=== PATIENT | female | born 1975 | race African-American/Black ===

== ENCOUNTER 2022-06-25 13:49 | Inpatient (IN) ==
[2022-06-25] MEDS ORDERED: SODIUM CHLORIDE 0.9% 1,000 ML IV STA (13:55)
[2022-06-25] MEDS ORDERED: ONDANSETRON INJ 2 MG/ML 2 ML VIAL ONE (15:06)
[2022-06-25] MEDS ORDERED: MoRPHine SULFATE 4 MG/ML 1 ML CARP\\VIAL IV STA ×3 (15:15→20:34)
[2022-06-25] MEDS ORDERED: ONDANSETRON INJ 2 MG/ML 2 ML VIAL IV STA (15:15)
[2022-06-25 15:17] LABS: Basophils # (auto) 0.02 K/uL (0-0.2); Basophils % (auto) 0.1 %; Hematocrit (blood only) 41.2 % (34.1-44.9); Hemoglobin 14.4 g/dl (12.0-16.0); Immature Granulocytes # (auto) 0.07 K/uL (0.00-0.02); Immature Granulocytes % (auto) 0.5 %; Lymphocytes # (auto) 1.58 K/uL (1.2-3.4); Lymphocytes % (auto) 10.2 %; Mean Corpuscular Hemoglobin 28.2 pg (25.0-34.0); Mean Corpuscular Volume 80.6 fL (80.0-100.0); Mean Platelet Volume 12.6 fL (9.4-12.3); Monocytes # (auto) 0.48 K/uL (0.24-0.82); Monocytes % (auto) 3.1 %; Neutrophils # (auto) 13.33 K/uL (1.4-6.5); Neutrophils % (auto) 86.1 %; Platelet Count 274 K/uL (130-400); RDW Coefficient of Variation 13.1 % (11.5-14.5); RDW Standard Deviation 37.9 fL (36.4-46.3); Red Blood Count 5.11 M/uL (3.93-5.22); White Blood Count 15.48 K/ul (4.8-10.8)
--- NOTE | 2022-06-25 15:18 | Emergency Department Note ---
Impression & Plan Acute epigastric pain, Nausea & vomiting, Hyperglycemia due to type 2 diabetes mellitus ED Provider Note Provider: Too Dias MD DATE OF SERVICE: 06/25/2022 CHIEF COMPLAINT: Epigastric pain, nausea and vomiting HISTORY OF PRESENT ILLNESS: Patient is a 46-year-old female history of diabetes and hiatal hernia presenting here today reporting onset last night through today of epigastric pain with nausea and vomiting. Did start a new diabetes medicine recently that may be contributing. Denies significant lower abdominal pain. Prior cholecystectomy reported. Denies trauma. Denies significant chest pain. Limited intake today due to her nausea and vomiting. Tried Phenergan and Reglan at home without improvement. No sick contacts reported. Has had some similar episodes in the past but not as severe as this. 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 NECK: Trachea midline. LUNGS: Airway patent. No retractions. Breath sounds clear HEART: Regular rate and rhythm. No chest wall tenderness ABDOMEN: Soft with epigastric tenderness but not severe lower abdominal tenderness. SKIN: Acyanotic, warm, dry, without rashes EXTREMITIES: Without swelling, tenderness or deformity NEUROLOGICAL: No focal deficits. No aphasia. No facial droop or slurred speech. Ambulatory. EK bpm normal sinus rhythm. No PVC or PAC. No acute ST segment elevation with some lateral T wave flattening. LVH noted with a QTC of 462. CONTINUOUS CARDIAC MONITORING: was ordered and showed a heart rate of 80s-90s bpm in normal sinus rhythm Patient's laboratory studies and imaging reviewed. Differential includes Appendicitis, infections, diverticulitis, UTI, obstruction, mesenteric ischemia, aortic pathology, inflammatory bowel disease, renal colic, PUD, pancreatitis, biliary pathology, hernia, volvulus, constipation, as well as other pathologies. IMPRESSION/MEDICAL DECISION MAKING: Patient with onset overnight of nausea vomiting and epigastric discomfort. Recently started diabetes medication may be contributing and question if she may be experiencing pancreatitis. Is really history additionally pedal hernia. No trauma reported. EKG and troponin sent but lower suspicion given the patient's nausea and vomiting this is cardiac. We will complete a CT abdomen pelvis to look for possible pancreatitis, gastritis, or other intra-abdominal process. Doubt PE and she is not significantly hypoxic. Is hypertensive here. He likely related to pain and given some morphine in addition to Zofran and IV fluid to help with symptoms. Some improvement with this. Blood work with leukocytosis of 15.48 nonspecific. No anemia. Mild hyponatremia but no significant renal dysfunction. Glucose is elevated consistent with a history of diabetes. No evidence of acute hepatitis or pancreatitis based on labs. Negative COVID testing. Patient more comfortable with medications and less nauseous. Loading some additional Reglan for this. Troponin not elevated and EKG without acute ischemic findings. CT scan question some bilateral periadrenal fat stranding could represent adrenal congestion according to radiology report but no evidence of obstruction, bowel wall thickening, appendicitis, or other acute finding reported. Quick review of literature appears drain congestion can be related to physiological stresses. Discussed with patient and her significant other at bedside. Given some additional pain medication. Discussed with him staying here for further evaluation. Hospitalist contacted. Question if this is gastroenteritis situation versus possibly medication related to her Trulicity. DIAGNOSIS: Epigastric pain, nausea and vomiting, hypertension, hyperglycemia secondary to type 2 diabetes DISPOSITION: Hospitalist will evaluate Patient was agreeable with this plan. Past Med/Surg History Medical History (Updated 06/25/22 @ 18:45 by Anna Alvarado DO) Depression with anxiety Dyslipidemia GERD (gastroesophageal reflux disease) HTN (hypertension) Irritable bowel syndrome with diarrhea Morbid obesity due to excess calories Type 2 diabetes mellitus Surgical History (Updated 06/25/22 @ 18:44 by Anna Alvarado DO) H/O bilateral breast reduction surgery 2016 Social History Smoking Status: Never smoker Preferred Language: [place] Feels Safe at Home: Yes Allergies Allergies Allergy/AdvReac Type Severity Reaction Status Date / Time nkda Allergy Uncoded 06/25/22 18:42 Results & Data (ED) Vital Signs Vital Signs - 24 hr 06/25/22 13:52 06/25/22 15:47 06/25/22 15:52 Temperature 36.3 C L Temperature Source Temporal Artery Scan Pulse Rate 94 H 78 Pulse Rate from SpO2 Sensor 79 Pulse Rhythm Regular Pulse Strength Normal Respiratory Rate 20 19 Respiratory Effort / Characteristics Non-Labored Spontaneous Respiratory Depth Normal Respiratory Pattern Regular Blood Pressure 214/111 H 166/103 H Blood Pressure Mean 145 124 Blood Pressure Position Sitting Pulse Oximetry 96 98 Oxygen Delivery Method Room Air Sepsis Recent Fever Within 48 Hours No Sepsis New/Unexplained Change in Mental Status No Sepsis Action Taken by Nursing No Action Required 06/25/22 15:52 06/25/22 16:00 06/25/22 16:15 Temperature Temperature Source Pulse Rate 77 79 83 Pulse Rate from SpO2 Sensor 78 79 82 Pulse Rhythm Pulse Strength Respiratory Rate 14 32 H 30 H Respiratory Effort / Characteristics Respiratory Depth Respiratory Pattern Blood Pressure Blood Pressure Mean Blood Pressure Position Pulse Oximetry 96 95 95 Oxygen Delivery Method Sepsis Recent Fever Within 48 Hours Sepsis New/Unexplained Change in Mental Status Sepsis Action Taken by Nursing 06/25/22 16:30 06/25/22 16:50 06/25/22 16:58 Temperature Temperature Source Pulse Rate 86 92 H Pulse Rate from SpO2 Sensor 83 Pulse Rhythm Pulse Strength Respiratory Rate 29 H 23 Respiratory Effort / Characteristics Respiratory Depth Respiratory Pattern Blood Pressure 192/104 H Blood Pressure Mean 133 Blood Pressure Position Pulse Oximetry 95 Oxygen Delivery Method Sepsis Recent Fever Within 48 Hours Sepsis New/Unexplained Change in Mental Status Sepsis Action Taken by Nursing 06/25/22 16:58 06/25/22 17:00 06/25/22 17:00 Temperature Temperature Source Pulse Rate 97 H 90 Pulse Rate from SpO2 Sensor 96 H Pulse Rhythm Pulse Strength Respiratory Rate 22 30 H Respiratory Effort / Characteristics Respiratory Depth Respiratory Pattern Blood Pressure 156/92 H Blood Pressure Mean 113 Blood Pressure Position Pulse Oximetry 97 Oxygen Delivery Method Sepsis Recent Fever Within 48 Hours Sepsis New/Unexplained Change in Mental Status Sepsis Action Taken by Nursing 06/25/22 17:15 06/25/22 17:30 06/25/22 17:45 Temperature Temperature Source Pulse Rate 86 86 88 Pulse Rate from SpO2 Sensor 88 88 89 Pulse Rhythm Pulse Strength Respiratory Rate 28 H 27 H 17 Respiratory Effort / Characteristics Respiratory Depth Respiratory Pattern Blood Pressure Blood Pressure Mean Blood Pressure Position Pulse Oximetry 96 96 97 Oxygen Delivery Method Sepsis Recent Fever Within 48 Hours Sepsis New/Unexplained Change in Mental Status Sepsis Action Taken by Nursing 06/25/22 18:00 06/25/22 18:00 06/25/22 18:15 Temperature Temperature Source Pulse Rate 85 91 H Pulse Rate from SpO2 Sensor 85 90 Pulse Rhythm Pulse Strength Respiratory Rate 27 H 25 H Respiratory Effort / Characteristics Respiratory Depth Respiratory Pattern Blood Pressure 178/109 H Blood Pressure Mean 132 Blood Pressure Position Pulse Oximetry 96 96 Oxygen Delivery Method Sepsis Recent Fever Within 48 Hours Sepsis New/Unexplained Change in Mental Status Sepsis Action Taken by Nursing Laboratory Data 06/25/22 15:00 06/25/22 15:00 Lab Results 06/25/22 06/25/22 06/25/22 Range/Units 15:00 15:00 15:00 WBC 15.48 H (4.8-10.8) K/ul RBC 5.11 (3.93-5.22) M/uL Hgb 14.4 (12.0-16.0) g/dl Hct 41.2 (34.1-44.9) % MCV 80.6 (80.0-100.0) fL MCH 28.2 (25.0-34.0) pg MCHC 35.0 (32.0-36.0) g/dL RDW Std Deviation 37.9 (36.4-46.3) fL RDW Coeff of Dia 13.1 (11.5-14.5) % Plt Count 274 (130-400) K/uL MPV 12.6 H (9.4-12.3) fL Immature Gran % (Auto) 0.5 % Neut % (Auto) 86.1 % Lymph % (Auto) 10.2 % [place] % (Auto) 3.1 % Eos % (Auto) 0.0 % Baso % (Auto) 0.1 % Neut # (Auto) 13.33 H (1.4-6.5) K/uL Lymph # (Auto) 1.58 (1.2-3.4) K/uL [place] # (Auto) 0.48 (0.24-0.82) K/uL Eos # (Auto) 0.00 (0-0.50) K/uL Baso # (Auto) 0.02 (0-0.2) K/uL Immature Gran # (Auto) 0.07 H (0.00-0.02) K/uL Sodium 134 L (136-145) mmol/L Potassium 3.6 (3.5-5.1) mmol/L Chloride 97 L (98-107) mmol/L Carbon Dioxide 25 (21-32) mmol/L Anion Gap 12 H (3-11) BUN 9 (6-23) mg/dl Creatinine 0.52 L (0.6-1.2) mg/dl Est Cr Clr Drug Dosing 158.7 ml/min Est GFR ( Amer) 132.8 ml/min Est GFR (Non-Af Amer) 114.6 ml/min BUN/Creatinine Ratio 17.3 (10-20) Glucose 247 H (70-99(Fasting)) mg/dl Calcium 10.1 (8.5-10.1) mg/dl Total Bilirubin 0.6 (0.2-1.0) mg/dl AST 13 (13-39) U/L ALT 19 (7-52) U/L Alkaline Phosphatase 102 (34-104) U/L Troponin I High Sens 7.1 (0-14) pg/ml Total Protein 8.9 H (6.0-8.3) gm/dl Albumin 4.7 (3.4-5.0) gm/dl Globulin 4.2 H (2.5-4.0) gm/dl Albumin/Globulin Ratio 1.1 (0.9-2) Lipase 8 L (11-82) U/L SARS-CoV-2, RNA, NAAT (NEGATIVE) 06/25/22 Range/Units 15:39 WBC (4.8-10.8) K/ul RBC (3.93-5.22) M/uL Hgb (12.0-16.0) g/dl Hct (34.1-44.9) % MCV (80.0-100.0) fL MCH (25.0-34.0) pg MCHC (32.0-36.0) g/dL RDW Std Deviation (36.4-46.3) fL RDW Coeff of Dia (11.5-14.5) % Plt Count (130-400) K/uL MPV (9.4-12.3) fL Immature Gran % (Auto) % Neut % (Auto) % Lymph % (Auto) % [place] % (Auto) % Eos % (Auto) % Baso % (Auto) % Neut # (Auto) (1.4-6.5) K/uL Lymph # (Auto) (1.2-3.4) K/uL [place] # (Auto) (0.24-0.82) K/uL Eos # (Auto) (0-0.50) K/uL Baso # (Auto) (0-0.2) K/uL Immature Gran # (Auto) (0.00-0.02) K/uL Sodium (136-145) mmol/L Potassium (3.5-5.1) mmol/L Chloride (98-107) mmol/L Carbon Dioxide (21-32) mmol/L Anion Gap (3-11) BUN (6-23) mg/dl Creatinine (0.6-1.2) mg/dl Est Cr Clr Drug Dosing ml/min Est GFR ( Amer) ml/min Est GFR (Non-Af Amer) ml/min BUN/Creatinine Ratio (10-20) Glucose (70-99(Fasting)) mg/dl Calcium (8.5-10.1) mg/dl Total Bilirubin (0.2-1.0) mg/dl AST (13-39) U/L ALT (7-52) U/L Alkaline Phosphatase (34-104) U/L Troponin I High Sens (0-14) pg/ml Total Protein (6.0-8.3) gm/dl Albumin (3.4-5.0) gm/dl Globulin (2.5-4.0) gm/dl Albumin/Globulin Ratio (0.9-2) Lipase (11-82) U/L SARS-CoV-2, RNA, NAAT NEGATIVE (NEGATIVE) Administered Medications Discontinued Medications Sodium Chloride (Nss) 1,000 mls @ 999 mls/hr IV .Q1H1M STA Stop: 06/25/22 14:55 Last Infusion: 06/25/22 16:20 Dose: 0 mls/hr Documented By: Admin: 06/25/22 15:12 Dose: 999 mls/hr Documented By: NACHO Sodium Chloride (Nss 1000ml) 1,000 mls @ 999 mls/hr IV .Q1H1M ONE Stop: 06/25/22 18:38 Last Admin: 06/25/22 18:20 Dose: 999 mls/hr Documented By: JOSÉ MIGUEL Ioversol (Optiray 350 100ml) 86 ml IV ONCE ONE Stop: 06/25/22 16:47 Last Admin: 06/25/22 16:46 Dose: 86 ml Documented By: DIPIKA Metoclopramide HCl (Metoclopramide Hcl Inj 5 Mg/Ml 2 Ml Vial) 10 mg IV NOW STA Stop: 06/25/22 17:28 Last Admin: 06/25/22 17:34 Dose: 10 mg Documented By: DLN Morphine Sulfate (Morphine Sulfate 4 Mg/Ml 1 Ml Carp\Vial) 4 mg IV NOW STA Stop: 06/25/22 15:16 Last Admin: 06/25/22 15:47 Dose: 4 mg Documented By: VENKATN Morphine Sulfate (Morphine Sulfate 4 Mg/Ml 1 Ml Carp\Vial) 4 mg IV NOW STA Stop: 06/25/22 17:34 Last Admin: 06/25/22 17:40 Dose: 4 mg Documented By: JOSÉ MIGUEL Ondansetron HCl (Ondansetron Inj 2 Mg/Ml 2 Ml Vial) Confirm Administered Dose 4 mg .ROUTE .STK-MED ONE Stop: 06/25/22 15:07 Last Admin: 06/25/22 15:12 Dose: 4 mg Documented By: NACHO Ondansetron HCl (Ondansetron Inj 2 Mg/Ml 2 Ml Vial) 4 mg IV NOW STA Stop: 06/25/22 15:16 Last Admin: 06/25/22 15:47 Dose: 4 mg Documented By: JOSÉ MIGUEL Imaging Data Radiologist's Impression: Abdomen/Pelvis CT 06/25/22 15:[address] WITH IV CONTRAST CT DOSE: 1448.73 mGy.cm HISTORY: epigastric pain, n/v, hiatal hernia, diabetes TECHNIQUE: Multiaxial CT images of the abdomen and pelvis were performed following the use of intravenous contrast. A dose lowering technique was utilized adhering to the principles of ALARA. COMPARISON STUDY: None. FINDINGS: The lung bases are clear. No pneumoperitoneum. No pneumatosis. No acute fractures identified. Hepatic steatosis. The gallbladder appears surgically absent. The main portal vein is patent. In the pancreas, spleen, and kidneys are unremarkable. No hydronephrosis. Normal caliber abdominal aorta. No retroperitoneal lymphadenopathy. Adrenal glands are normal in size. There are no adrenal nodules identified. However, there is mild bilateral periadrenal fat stranding. No pelvic lymphadenopathy. The bladder is unremarkable. There is a 5 cm subserosal fibroid on image 354. There is a 2.3 cm exophytic posterior uterine fibroid on image 333. There is also partially calcified 1.4 cm nodule along the posterior uterus which may represent an additional exophytic fibroid. No bowel wall thickening or obstruction. The cecum terminates within the left lower quadrant where there is a normal appendix. IMPRESSION: 1. Mild bilateral periadrenal fat stranding. The adrenal glands are normal in size. This is nonspecific but could be seen in the setting of adrenal congestion. 2. No bowel wall thickening or obstruction. 3. Normal appendix seen within the left lower quadrant. 4. Fibroid uterus. 5. Hepatic steatosis. 6. Cholecystectomy. ACT 112: Negative or not required by law. Electronically signed by: Eduard Lopez M.D. 06/25/2022 4:58 PM Discharge Plan Visit Data Chief Complaint: Nausea Stated Complaint: NAUSEA, VOMITING, DIARRHEA, WEAKNESS ED Provider: Too Dias Discharge Problem: Acute epigastric pain, Nausea & vomiting, Hyperglycemia due to type 2 diabetes mellitus Patient Disposition: Being Evaluated by Hospitalist Condition: Fair Forms Stand Alone Forms: My [facility] Referrals Referrals: PCP,NO [Physician] -
[2022-06-25 16:13] LABS: Albumin Globulin Ratio 1.1 (0.9-2); Albumin Level 4.7 gm/dl (3.4-5.0); BUN Creatinine Ratio 17.3 (10-20); Bilirubin,Total 0.6 mg/dl (0.2-1.0); Calcium 10.1 mg/dl (8.5-10.1); Creatinine Clr Calc Pharmacy 158.7 ml/min; Est GFR (African American) 132.8 ml/min; Est GFR (Non-African American) 114.6 ml/min; Globulin 4.2 gm/dl (2.5-4.0); Potassium 3.6 mmol/L (3.5-5.1); Total Protein 8.9 gm/dl (6.0-8.3)
[2022-06-25] MEDS ORDERED: OPTIRAY 350 100ml IV ONE (16:46)
--- NOTE | 2022-06-25 17:01 | CT Scan Report ---
ABDOMEN AND PELVIS CT WITH IV CONTRAST CT DOSE: 1448.73 mGy.cm HISTORY: epigastric pain, n/v, hiatal hernia, diabetes TECHNIQUE: Multiaxial CT images of the abdomen and pelvis were performed following the use of intrave nous contrast. A dose lowering technique was utilized adhering to the principles of ALARA. COMPARISON STUDY: None. FINDINGS: The lung bases are clear. No pneumoperitoneum. No pneumatosis. No acute fractures identifie d. Hepatic steatosis. The gallbladder appears surgically absent. The main portal vein is patent. In t he pancreas, spleen, and kidneys are unremarkable. No hydronephrosis. Normal caliber abdominal aorta. No retroperitoneal lymphadenopathy. Adrenal glands are normal in size. There are no adrenal nodules identified. However, there is mild bilateral periadrenal fat stranding. No pelvic lymphadenopathy. Th e bladder is unremarkable. There is a 5 cm subserosal fibroid on image 354. There is a 2.3 cm exophyt ic posterior uterine fibroid on image 333. There is also partially calcified 1.4 cm nodule along the posterior uterus which may represent an additional exophytic fibroid. No bowel wall thickening or obs truction. The cecum terminates within the left lower quadrant where there is a normal appendix. IMPRESSION: 1. Mild bilateral periadrenal fat stranding. The adrenal glands are normal in size. This is nonspecif ic but could be seen in the setting of adrenal congestion. 2. No bowel wall thickening or obstruction. 3. Normal appendix seen within the left lower quadrant. 4. Fibroid uterus. 5. Hepatic steatosis. 6. Cholecystectomy. ACT 112: Negative or not required by law. Electronically signed by: Eduard Lopez M.D. 06/25/2022 4:58 PM
[2022-06-25] MEDS ORDERED: METOCLOPRAMIDE HCL INJ 5 MG/ML 2 ML VIAL IV STA (17:27)
[2022-06-25] MEDS ORDERED: SODIUM CHLORIDE 0.9% 1000ML 1,000 ML IV ONE (17:38)
--- NOTE | 2022-06-25 18:46 | History & Physical Report ---
Date of Service June 25, 2022 Assessment & Plan (1) Acute epigastric pain: Plan: Appears to be related to new Mounjaro medication (GLP-1 agonist) with the timing of her symptoms after the switch. Now with vomiting and dehydration, this is worse. Will continue to hold Mounjaro and use insulin for blood sugar control while admitted. [facility]. health educator to see her is a good idea. (2) Nausea & vomiting: Plan: Likely related to issue above. Cont supportive care and if not improved consider GI consult. (3) Hypertensive urgency: Plan: Uncontrolled BP related to current symptoms, fatigue, pain that is not controlled and noncompliance with hypertensive medications in the past few days. Labetalol given in the ER. Restart home medications in am and more parenteral therapy as needed overnight. Monitor in PCU setting. (4) Side effect of drug: (5) Type 2 diabetes mellitus: Plan: chronic, poorly controlled A1C of 8.2 with goal <7 (04/2022). Repeat A1C requested. Cont with MDD insulin while admitted. (6) Dyslipidemia: Plan: chronic, stable. Cont home atorvastatin. (7) Morbid obesity due to excess calories: Plan: Lifestyle changes strongly recommended. (8) Irritable bowel syndrome with diarrhea: Plan: chronic, stable. No reports of changes in bowels. Typically uses Lomotil daily which we will hold at this time. (9) Anxiety: Plan: chronic, stable. Cont Venlafaxine per home regimen. DVT proph-SCDs/Lovenox Full Code Dispo-to PCU for BP control and monitoring Anna Alvarado DO [facility] Hospitalist History of Present Illness Chief Complaint: nausea,vomiting, exhaustion Primary Care Provider: Zechariah Mckeon MD The patient is a 46-year-old diabetic female presenting with epigastric pain nausea and vomiting for 1 day. [facility] 4 weeks ago and reported nausea present but it was manageable. Then on Wednesday of this week (2 days ago) she increased her dose of Mounjaro from 5mg to 7.5mg and feels this may be contributing to her current symptoms. She reports an extensive GI history with IBS with chronic diarrhea managed with once daily lomotil. She reports having some pain like this in the past and was hospit alized two years ago, requiring pain meds, bowel rest and IVF. She reports that an extensive workup was unremarkable and only knows the IBS diagnosis. She doesn't appear to have pancreatitis with the normal lipase and CT abd revealing a normal pancreas, however, she does report a chronic sharp midepigastric pain that is reproducible with palpation and has a burning quality. She reports trying Tylneol and Toradol recently which wasn't helpful for her pain. On arrival she was hypertensive with a blood pressure of 214/111. She reports this happens when she is ill and not feeling well. She also reports noncompliance with her losartan over the past couple of days. In the ER she received 2 L of IV fluid, Zofran 4 mg of morphine x2 and Reglan. She was given additional morphine on request . . Allergies Allergy/AdvReac Type Severity Reaction Status Date / Time nkda Allergy Uncoded 06/25/22 18:42 Home Medications Medication Instructions Recorded Confirmed Type atorvastatin 10 mg tablet 10 mg PO DAILY 06/25/22 06/25/22 History cetirizine 10 mg tablet (Zyrtec) 10 mg PO DAILY 06/25/22 06/25/22 History diphenoxylate-atropine 2.5 1 tab PO DAILY 06/25/22 06/25/22 History mg-0.025 mg tablet (Lomotil) ergocalciferol (vitamin D2) 1,250 50,000 unit PO WK 06/25/22 06/25/22 History mcg (50,000 unit) capsule insulin degludec 100 unit/mL (3 35 unit subcut DAILY 06/25/22 06/25/22 History mL) subcutaneous pen (Tresiba FlexTouch U-100 insulin) losartan 25 mg tablet 25 mg PO DAILY 06/25/22 06/25/22 History montelukast 10 mg tablet 10 mg PO DAILY 06/25/22 06/25/22 History pantoprazole 40 mg tablet,delayed 40 mg PO QAM 06/25/22 06/25/22 History release tirzepatide 10 mg/0.5 mL 7.5 mg subcut WK 06/25/22 06/25/22 History subcutaneous pen injector (Mounjaro) valacyclovir 500 mg tablet 500 mg PO QAM PRN Cold Sores 06/25/22 06/25/22 History venlafaxine 150 mg 300 mg PO QAM 06/25/22 06/25/22 History capsule,extended release 24 hr Past Med/Surg History Medical History Depression with anxiety Dyslipidemia GERD (gastroesophageal reflux disease) HTN (hypertension) Irritable bowel syndrome with diarrhea Morbid obesity due to excess calories Type 2 diabetes mellitus Surgical History H/O bilateral breast reduction surgery 2015 H/O right knee surgery S/P cholecystectomy Family History Mother Diabetes Brother Diabetes Social History Smoking Status: Never smoker Hx Alcohol Use: No Hx Substance Use: No Preferred Language: Zambian Feels Safe at Home: Yes Review of Systems Review of Systems: All systems were reviewed and negative except as indicated on HPI above. Physical Exam Physical Exam: CONSTITUTIONAL: morbidly obese, vitals as above, generally ill appearing EYES: EOMI bilaterally, PERRL, normal conjunctivae, no scleral icterus ENT: external ear and nose normal, oropharynx clear, oral mucous membranes are moist. NECK: trachea midline RESPIRATORY: clear to auscultation bilaterally, no crackles, rales or wheezes, normal respiratory effort CARDIOVASCULAR: regular rate and rhythm, S1 and 2 heard without murmurs, gallops or rubs, no JVD, no peripheral edema CHEST: inspection of chest was normal GASTROINTESTINAL: soft, TTP in epigastric area, ND, no guarding MUSCULOSKELETAL: strength 5/5 throughout, she is ambulating independently to and from the bathroom, head is normocephalic and atraumatic SKIN: warm and dry NEUROLOGIC: CN 2-12 grossly intact, no sensory deficit, normal cognition, normal speech, no tremor PSYCHIATRIC: alert cooperative and oriented to person, place and time. Euthymic mood, makes good eye contact, language grossly intact, recent and remote memory grossly intact. Results & Data Results & Data ([facility]) Vital Signs (Past 12 Hours) Vital Signs Temp Pulse Resp BP Pulse Ox O2 Del Method 06/25/22 18:15 91 H 25 H 96 06/25/22 18:00 85 27 H 96 06/25/22 18:00 178/109 H 06/25/22 17:45 88 17 97 06/25/22 17:30 86 27 H 96 06/25/22 17:15 86 28 H 96 06/25/22 17:00 90 30 H 06/25/22 17:00 156/92 H 06/25/22 16:58 97 H 22 97 06/25/22 16:58 192/104 H 06/25/22 16:50 92 H 23 06/25/22 16:30 86 29 H 95 06/25/22 16:15 83 30 H 95 06/25/22 16:00 79 32 H 95 06/25/22 15:52 77 14 96 06/25/22 15:52 166/103 H 06/25/22 15:47 78 19 98 06/25/22 13:52 36.3 C L 94 H 20 214/111 H 96 Room Air Laboratory Results Short CBC 06/25/22 Range/Units 15:00 WBC 15.48 H (4.8-10.8) K/ul Hgb 14.4 (12.0-16.0) g/dl Hct 41.2 (34.1-44.9) % Plt Count 274 (130-400) K/uL BMP 06/25/22 15:00 Sodium 134 L Potassium 3.6 Chloride 97 L Carbon Dioxide 25 BUN 9 Creatinine 0.52 L Glucose 247 H Calcium 10.1 Liver Function 06/25/22 Range/Units 15:00 Total Bilirubin 0.6 (0.2-1.0) mg/dl AST 13 (13-39) U/L ALT 19 (7-52) U/L Alkaline Phosphatase 102 (34-104) U/L Albumin 4.7 (3.4-5.0) gm/dl Diagnostic Findings Abdomen/Pelvis CT 06/25/22 15:[address] WITH IV CONTRAST CT DOSE: 1448.73 mGy.cm HISTORY: epigastric pain, n/v, hiatal hernia, diabetes TECHNIQUE: Multiaxial CT images of the abdomen and pelvis were performed following the use of intravenous contrast. A dose lowering technique was utilized adhering to the principles of ALARA. COMPARISON STUDY: None. FINDINGS: The lung bases are clear. No pneumoperitoneum. No pneumatosis. No acute fractures identified. Hepatic steatosis. The gallbladder appears surgically absent. The main portal vein is patent. In the pancreas, spleen, and kidneys are unremarkable. No hydronephrosis. Normal caliber abdominal aorta. No retroperitoneal lymphadenopathy. Adrenal glands are normal in size. There are no adrenal nodules identified. However, there is mild bilateral periadrenal fat stranding. No pelvic lymphadenopathy. The bladder is unremarkable. There is a 5 cm subserosal fibroid on image 354. There is a 2.3 cm exophytic posterior uterine fibroid on image 333. There is also partially calcified 1.4 cm nodule along the posterior uterus which may represent an additional exophytic fibroid. No bowel wall thickening or obstruction. The cecum terminates within the left lower quadrant where there is a normal appendix. IMPRESSION: 1. Mild bilateral periadrenal fat stranding. The adrenal glands are normal in size. This is nonspecific but could be seen in the setting of adrenal congestion. 2. No bowel wall thickening or obstruction. 3. Normal appendix seen within the left lower quadrant. 4. Fibroid uterus. 5. Hepatic steatosis. 6. Cholecystectomy. ACT 112: Negative or not required by law. Electronically signed by: Eduard Lopez M.D. 06/25/2022 4:58 PM Code Status & VTE Plan VTE Prophylaxis Plan VTE Prophylaxis will be ordered: Yes (1) Type 2 diabetes mellitus Diabetes mellitus complication status: with other specified complication Diabetes mellitus long term care social worker insulin use: unspecified long term care social worker insulin use status Qualified Code(s): E11.69 - Type 2 diabetes mellitus with other specified complication
[2022-06-25] MEDS ORDERED: LABETALOL HCL IV 5 MG/ML 20ML IV STA (20:36)
[2022-06-25] MEDS ORDERED: ALUMINUM/MAGNESIUM SUSP 30 ML UDC PO PRN (21:39)
[2022-06-25] MEDS ORDERED: GLUCOSE 40% GEL 15 GM TUBE PO PRN (21:39)
[2022-06-25] MEDS ORDERED: GLUCOSE 10 TAB/TUBE PO PRN (21:39)
[2022-06-25] MEDS ORDERED: GLUCAGON FOR INJ 1 MG VIAL SQ PRN (21:39)
[2022-06-25] MEDS ORDERED: POLYETHYLENE (MIRALAX) 17 GM PACK PO PRN (21:39)
[2022-06-25] MEDS ORDERED: MoRPHine SULFATE 2 MG/ML CARP IV PRN (21:39)
[2022-06-25] MEDS ORDERED: ACETAMINOPHEN 325 MG TAB PO PRN (21:39)
[2022-06-25] MEDS ORDERED: DEXTROSE 50% 50 ML SYRINGE IV PRN (21:39)
[2022-06-25] MEDS ORDERED: CARBOHYDRATES FOR HYPOGLYCEMIA PO PRN (21:39)
[2022-06-25] MEDS: ENOXAPARIN INJ 40 MG/0.4 ML SYR SQ SCH (22:21)
[2022-06-25] MEDS: INSULIN ASPART PER UNIT SC SCH (22:22)
[2022-06-25] MEDS: LANTUS PER UNIT CHARGE SQ SCH (22:23)
[2022-06-25] MEDS ORDERED: PROMETHAZINE HCL 12.5 MG in SODIUM CHLORIDE 0.9% 50 ML IV PRN (22:47)
[2022-06-26 06:30] LABS: Hemoglobin 12.6 g/dl (12.0-16.0); Mean Corpuscular Hemoglobin 28.3 pg (25.0-34.0); Mean Corpuscular Hgb Conc 33.2 g/dL (32.0-36.0); Mean Corpuscular Volume 85.2 fL (80.0-100.0); Mean Platelet Volume 12.7 fL (9.4-12.3); Platelet Count 241 K/uL (130-400); RDW Coefficient of Variation 13.3 % (11.5-14.5); RDW Standard Deviation 41.1 fL (36.4-46.3); Red Blood Count 4.46 M/uL (3.93-5.22); White Blood Count 12.61 K/ul (4.8-10.8)
[2022-06-26 06:51] LABS: Calcium 8.4 mg/dl (8.5-10.1); Potassium 3.3 mmol/L (3.5-5.1)
[2022-06-26 06:57] LABS: BUN Creatinine Ratio 18.6 (10-20); Creatinine Clr Calc Pharmacy 117.6 ml/min; Est GFR (African American) 120.4 ml/min; Est GFR (Non-African American) 103.9 ml/min; Phosphorus 2.8 mg/dl (2.5-4.9)
[2022-06-26 07:15] LABS: Estimated Average Glucose 174 mg/dl; Hemoglobin A1C 7.7 % (4.5-5.6)
[2022-06-26] MEDS ORDERED: LOSARTAN POTASSIUM 25 MG TAB PO SCH (09:00)
[2022-06-26] MEDS: VENLAFAXINE HCL XR 150 MG CAPXR PO SCH (09:04)
[2022-06-26] MEDS: MONTELUKAST SODIUM 10 MG TABLET PO SCH (09:04)
[2022-06-26] MEDS: PANTOprazole 40 MG TAB PO SCH (09:04)
[2022-06-26] MEDS: ATORVASTATIN 10 MG TAB PO SCH (09:04)
[2022-06-26] MEDS: LANTUS PER UNIT CHARGE SQ SCH ×2 (09:06→21:45)
[2022-06-26] MEDS: ENOXAPARIN INJ 40 MG/0.4 ML SYR SQ SCH ×2 (09:07→21:45)
[2022-06-26] MEDS: INSULIN ASPART PER UNIT SC SCH ×4 (09:07→21:45)
[2022-06-26] MEDS ORDERED: LACTATED RINGER'S 500 ML IV ONE (10:38)
--- NOTE | 2022-06-26 11:35 | Electrocardiogram Report ---
Test Reason : Blood Pressure : / mmHG Vent. Rate : 082 BPM Atrial Rate : 082 BPM P-R Int : 174 ms QRS Dur : 088 ms QT Int : 414 ms P-R-T Axes : 051 -17 033 degrees QTc Int : 484 ms Normal sinus rhythm Voltage criteria for left ventricular hypertrophy Prolonged QT Abnormal ECG No previous ECGs available Confirmed by Michael Heller ([id number]) on 06/26/2022 11:35:21 AM Referred By: REFERRED SELF Confirmed By:Michael Heller
[2022-06-26] MEDS: LACTATED RINGER'S 1,000 ML IV SCH (14:53)
[2022-06-26] MEDS ORDERED: oxyCODONE HCL IR 5 MG TAB (IMMEDIATE RELEASE) PO STA (15:11)
[2022-06-26 15:28] LABS: BUN Creatinine Ratio 16.4 (10-20); Calcium 8.4 mg/dl (8.5-10.1); Creatinine Clr Calc Pharmacy 122.8 ml/min; Est GFR (African American) 122.2 ml/min; Est GFR (Non-African American) 105.4 ml/min; Potassium 3.3 mmol/L (3.5-5.1)
[2022-06-26 16:26] LABS: Uric Acid 4.5 mg/dl (2.6-7.2)
[2022-06-26] MEDS ORDERED: POTASSIUM CHLORIDE CRTAB 20 MEQ TABCR PO STA (16:39)
--- NOTE | 2022-06-26 16:42 | Hospitalist Progress Note ---
Date of Service June 26, 2022 Assessment & Plan (1) Acute epigastric pain: (2) Nausea & vomiting: Plan: Presented with nausea vomiting and epigastric pain Appears to be related to new Mounjaro medication (GLP-1 agonist) with the timing of her symptoms after the switch. CT abdomen and pelvis shows nonspecific mild bilateral periadrenal fat stranding no bowel obstruction. WBC down trended from 15-12; likely stress related Reports urine output 200 cc in last 24 hours. Plan; -Advance diet. -Give 500 cc LR bolus; hold losartan. Start on LR at 80 cc/h. -Strict input and output monitoring -Encourage oral hydration -We will repeat BMP tomorrow (3) Hypertensive urgency: Plan: Blood pressure significantly elevated to 214/111 on admission Improvement today. Will hold losartan given oliguria (4) Side effect of drug: (5) Type 2 diabetes mellitus: Plan: A1c of 7.7. Lantus and NovoLog while inpatient. Patient previously tolerated Ozempic well; will follow up with primary care doctor (6) Dyslipidemia: Plan: chronic, stable. Cont home atorvastatin. (7) Morbid obesity due to excess calories: Plan: Lifestyle changes strongly recommended. (8) Irritable bowel syndrome with diarrhea: Plan: chronic, stable. No reports of changes in bowels. Typically uses Lomotil daily (9) Anxiety: Plan: chronic, stable. Cont Venlafaxine per home regimen. DVT proph-SCDs/Lovenox Full Code Dispo-Home after resolution of medical issues. Admission and Anticipated Discharge Date Admission Date: June 25, 2022 Subjective Patient seen and examined at bedside. She reports feeling nauseous and not having an appetite. No episode of vomiting so far. Reports that she has voided just 100 cc in last 24 hours. Review of Systems Review of Systems: All systems reviewed & are unremarkable except as noted in Subjective Physical Exam Physical Exam: Constitutional: Alert, oriented x3; not in any distress. Respiratory: normal respiratory effort, lungs clear to auscultation, no wheeze, rales, rhonchi. Normal insp/exp effort, no accessory muscle use Cardiovascular: RRR, no murmur, no edema Vessels: no JVD or carotid bruit Chest: normal inspection of chest Abdomen: normal bowel sounds, soft, nontender, no hepatosplenomegaly Musculoskeletal: no cyanosis or clubbing, extremities motor strength 5/5 Skin: no rashes, warm and dry normal turgor Neurologic: PERRL, EOMI, accommodation nl, no face palsy, no dysarthria CN's II- XI intact bilaterally and moves all extremities Psychiatric: A+Ox3, euthymic affect Lymphatic: no cervical or axillary lymphadenopathy : deferred Results & Data Results & Data ([facility]) Vital Signs (Past 12 Hours) Vital Signs Temp Pulse Pulse Resp BP Pulse Ox O2 Del Method 06/26/22 15:07 86 06/26/22 14:19 36.9 C 78 18 106/79 96 Room Air 06/26/22 11:19 37.4 C 81 17 110/74 95 Room Air 06/26/22 10:35 Room Air 06/26/22 07:35 80 06/26/22 07:17 36.8 C 73 19 104/68 Room Air 06/26/22 05:30 36.9 C 87 20 119/76 95 Room Air Laboratory Results Laboratory Results WBC 12.61 K/ul (4.8-10.8) H 06/26/22 05:45 RBC 4.46 M/uL (3.93-5.22) 06/26/22 05:45 Hgb 12.6 g/dl (12.0-16.0) 06/26/22 05:45 Hct 38.0 % (34.1-44.9) 06/26/22 05:45 MCV 85.2 fL (80.0-100.0) D 06/26/22 05:45 MCH 28.3 pg (25.0-34.0) 06/26/22 05:45 MCHC 33.2 g/dL (32.0-36.0) 06/26/22 05:45 RDW Std Deviation 41.1 fL (36.4-46.3) 06/26/22 05:45 RDW Coeff of Dia 13.3 % (11.5-14.5) 06/26/22 05:45 Plt Count 241 K/uL (130-400) 06/26/22 05:45 MPV 12.7 fL (9.4-12.3) H 06/26/22 05:45 Immature Gran % (Auto) 0.5 % 06/25/22 15:00 Neut % (Auto) 86.1 % 06/25/22 15:00 Lymph % (Auto) 10.2 % 06/25/22 15:00 [place] % (Auto) 3.1 % 06/25/22 15:00 Eos % (Auto) 0.0 % 06/25/22 15:00 Baso % (Auto) 0.1 % 06/25/22 15:00 Neut # (Auto) 13.33 K/uL (1.4-6.5) H 06/25/22 15:00 Lymph # (Auto) 1.58 K/uL (1.2-3.4) 06/25/22 15:00 [place] # (Auto) 0.48 K/uL (0.24-0.82) 06/25/22 15:00 Eos # (Auto) 0.00 K/uL (0-0.50) 06/25/22 15:00 Baso # (Auto) 0.02 K/uL (0-0.2) 06/25/22 15:00 Immature Gran # (Auto) 0.07 K/uL (0.00-0.02) H 06/25/22 15:00 Sodium 135 mmol/L (136-145) L 06/26/22 14:19 Potassium 3.3 mmol/L (3.5-5.1) L 06/26/22 14:19 Chloride 103 mmol/L (98-107) 06/26/22 14:19 Carbon Dioxide 24 mmol/L (21-32) 06/26/22 14:19 Anion Gap 8 (3-11) 06/26/22 14:19 BUN 11 mg/dl (6-23) 06/26/22 14:19 Creatinine 0.67 mg/dl (0.6-1.2) 06/26/22 14:19 Est Cr Clr Drug Dosing 122.8 ml/min 06/26/22 14:19 Est GFR ( Amer) 122.2 ml/min 06/26/22 14:19 Est GFR (Non-Af Amer) 105.4 ml/min 06/26/22 14:19 BUN/Creatinine Ratio 16.4 (10-20) 06/26/22 14:19 Glucose 174 mg/dl (70-99(Fasting)) H 06/26/22 14:19 POC Glucose 194 mg/dl (70-99) H 06/26/22 15:59 Estimat Average Glucose 174 mg/dl 06/26/22 05:45 Hemoglobin A1c 7.7 % (4.5-5.6) H 06/26/22 05:45 Uric Acid 4.5 mg/dl (2.6-7.2) 06/26/22 15:09 Calcium 8.4 mg/dl (8.5-10.1) L 06/26/22 14:19 Phosphorus 2.8 mg/dl (2.5-4.9) 06/26/22 05:45 Magnesium 2.0 mg/dl (1.7-2.4) 06/26/22 05:45 Total Bilirubin 0.6 mg/dl (0.2-1.0) 06/25/22 15:00 AST 13 U/L (13-39) 06/25/22 15:00 ALT 19 U/L (7-52) 06/25/22 15:00 Alkaline Phosphatase 102 U/L (34-104) 06/25/22 15:00 Total Creatine Kinase 68 U/L (26-192) 06/26/22 15:09 Troponin I High Sens 7.1 pg/ml (0-14) 06/25/22 15:00 Total Protein 8.9 gm/dl (6.0-8.3) H 06/25/22 15:00 Albumin 4.7 gm/dl (3.4-5.0) 06/25/22 15:00 Globulin 4.2 gm/dl (2.5-4.0) H 06/25/22 15:00 Albumin/Globulin Ratio 1.1 (0.9-2) 06/25/22 15:00 Lipase 8 U/L (11-82) L 06/25/22 15:00 SARS-CoV-2, RNA, NAAT NEGATIVE (NEGATIVE) 06/25/22 15:39 Impressions Abdomen/Pelvis CT 06/25/22 15:[address] WITH IV CONTRAST CT DOSE: 1448.73 mGy.cm HISTORY: epigastric pain, n/v, hiatal hernia, diabetes TECHNIQUE: Multiaxial CT images of the abdomen and pelvis were performed following the use of intravenous contrast. A dose lowering technique was utili zed adhering to the principles of ALARA. COMPARISON STUDY: None. FINDINGS: The lung bases are clear. No pneumoperitoneum. No pneumatosis. No acute fractures identified. Hepatic steatosis. The gallbladder appears surgically absent. The main portal vein is patent. In the pancreas, spleen, and kidneys are unremarkable. No hydronephrosis. Normal caliber abdominal aorta. No retroperitoneal lymphadenopathy. Adrenal glands are normal in size. There are no adrenal nodules identified. However, there is mild bilateral periadrenal fat stranding. No pelvic lymphadenopathy. The bladder is unremarkable. There is a 5 cm subserosal fibroid on image 354. There is a 2.3 cm exophytic posterior uterine fibroid on image 333. There is also partially calcified 1.4 cm nodule along the posterior uterus which may represent an additional exophytic fibroid. No bowel wall thickening or obstruction. The cecum terminates within the left lower quadrant where there is a normal appendix. IMPRESSION: 1. Mild bilateral periadrenal fat stranding. The adrenal glands are normal in size. This is nonspecific but could be seen in the setting of adrenal congestion. 2. No bowel wall thickening or obstruction. 3. Normal appendix seen within the left lower quadrant. 4. Fibroid uterus. 5. Hepatic steatosis. 6. Cholecystectomy. ACT 112: Negative or not required by law. Electronically signed by: Eduard Lopez M.D. 06/25/2022 4:58 PM (1) Type 2 diabetes mellitus Diabetes mellitus chcf insulin use: unspecified chcf insulin use status Diabetes mellitus complication status: with other specified complication Qualified Code(s): E11.69 - Type 2 diabetes mellitus with other specified complication
[2022-06-26 17:08] LABS: Appearance Urine Clear (Clear); Bilirubin Urine Negative (Negative); Blood Urine Negative (Negative); Color Urine Yellow; Glucose Urine UA Negative (Negative); Ketones Urine Negative (Negative); Leukocyte Esterase Urine Negative (Negative); Nitrite Urine Negative (Negative); Protein Urine Negative (Negative); Specific Gravity Urine 1.015 (1.000-1.030); Urobilinogen Urine Negative (Negative); pH Urine 6.5 (4.5-7.5)
[2022-06-26 17:20] LABS: Urine Chloride 45 mmol/L; Urine Potassium 26.8 mmol/L; Urine Sodium < 10 mmol/L
[2022-06-27] MEDS: LACTATED RINGER'S 1,000 ML IV SCH (03:14)
[2022-06-27 06:04] LABS: Basophils # (auto) 0.04 K/uL (0-0.2); Basophils % (auto) 0.4 %; Eosinophils # (auto) 0.08 K/uL (0-0.50); Eosinophils % (auto) 0.8 %; Hematocrit (blood only) 35.8 % (34.1-44.9); Hemoglobin 12.1 g/dl (12.0-16.0); Immature Granulocytes # (auto) 0.03 K/uL (0.00-0.02); Immature Granulocytes % (auto) 0.3 %; Lymphocytes # (auto) 4.98 K/uL (1.2-3.4); Lymphocytes % (auto) 49.5 %; Mean Corpuscular Hemoglobin 28.2 pg (25.0-34.0); Mean Corpuscular Hgb Conc 33.8 g/dL (32.0-36.0); Mean Corpuscular Volume 83.4 fL (80.0-100.0); Mean Platelet Volume 12.5 fL (9.4-12.3); Monocytes # (auto) 0.71 K/uL (0.24-0.82); Monocytes % (auto) 7.1 %; Neutrophils # (auto) 4.22 K/uL (1.4-6.5); Neutrophils % (auto) 41.9 %; Platelet Count 212 K/uL (130-400); RDW Coefficient of Variation 13.4 % (11.5-14.5); RDW Standard Deviation 40.7 fL (36.4-46.3); Red Blood Count 4.29 M/uL (3.93-5.22); White Blood Count 10.06 K/ul (4.8-10.8)
[2022-06-27 06:40] LABS: Calcium 8.2 mg/dl (8.5-10.1); Potassium 3.7 mmol/L (3.5-5.1)
[2022-06-27 06:45] LABS: BUN Creatinine Ratio 18.5 (10-20); Creatinine Clr Calc Pharmacy 152.6 ml/min; Est GFR (African American) 131.2 ml/min; Est GFR (Non-African American) 113.2 ml/min
[2022-06-27] MEDS: INSULIN ASPART PER UNIT SC SCH (08:45)
[2022-06-27] MEDS: LANTUS PER UNIT CHARGE SQ SCH (08:45)
[2022-06-27] MEDS: VENLAFAXINE HCL XR 150 MG CAPXR PO SCH (08:46)
[2022-06-27] MEDS: ENOXAPARIN INJ 40 MG/0.4 ML SYR SQ SCH (08:46)
[2022-06-27] MEDS: PANTOprazole 40 MG TAB PO SCH (08:46)
[2022-06-27] MEDS: MONTELUKAST SODIUM 10 MG TABLET PO SCH (08:46)
[2022-06-27] MEDS: ATORVASTATIN 10 MG TAB PO SCH (08:46)
[2022-06-27] MEDS ORDERED: ERGOCALCIFEROL 50,000 UNITS 1250 MCG CAP PO SCH (09:00)
--- NOTE | 2022-06-27 14:46 | Discharge Summary ---
Date of Service June 27, 2022 Admission HPI Per Admitting Provider The patient is a 46-year-old diabetic female presenting with epigastric pain nausea and vomiting for 1 day. She recently moved from [facility] to [facility] 4 weeks ago and reported nausea present but it was manageable. Then on Wednesday of this week (2 days ago) she increased her dose of Mounjaro from 5mg to 7.5mg and feels this may be contributing to her current symptoms. She reports an extensive GI history with IBS with chronic diarrhea managed with once daily lomotil. She reports having some pain like this in the past and was hospitalized two years ago, requiring pain meds, bowel rest and IVF. She reports that an extensive workup was unremarkable and only knows the IBS diagnosis. She doesn't appear to have pancreatitis with the normal lipase and CT abd revealing a normal pancreas, however, she does report a chronic sharp midepigastric pain that is reproducible with palpation and has a burning quality. She reports trying Tylneol and Toradol recently which wasn't helpful for her pain. On arrival she was hypertensive with a blood pressure of 214/111. She reports this happens when she is ill and not feeling well. She also reports noncompliance with her losartan over the past couple of days. In the ER she received 2 L of IV fluid, Zofran 4 mg of morphine x2 and Reglan. She was given additional morphine on request . . Admission Exam Per Admitting Provider CONSTITUTIONAL: morbidly obese, vitals as above, generally ill appearing EYES: EOMI bilaterally, PERRL, normal conjunctivae, no scleral icterus ENT: external ear and nose normal, oropharynx clear, oral mucous membranes are moist. NECK: trachea midline RESPIRATORY: clear to auscultation bilaterally, no crackles, rales or wheezes, normal respiratory effort CARDIOVASCULAR: regular rate and rhythm, S1 and 2 heard without murmurs, gallops or rubs, no JVD, no peripheral edema CHEST: inspection of chest was normal GASTROINTESTINAL: soft, TTP in epigastric area, ND, no guarding MUSCULOSKELETAL: strength 5/5 throughout, she is ambulating independently to and from the bathroom, head is normocephalic and atraumatic SKIN: warm and dry NEUROLOGIC: CN 2-12 grossly intact, no sensory deficit, normal cognition, normal speech, no tremor PSYCHIATRIC: alert cooperative and oriented to person, place and time. Euthymic mood, makes good eye contact, language grossly intact, recent and remote memory grossly intact. Principal Diagnosis Epigastric pain Nausea and vomiting Suspected side effect of GLP-1 agonist Discharge Exam Constitutional: Alert, oriented x3; not in any distress. Respiratory: normal respiratory effort, lungs clear to auscultation, no wheeze, rales, rhonchi. Normal insp/exp effort, no accessory muscle use Cardiovascular: RRR, no murmur, no edema Vessels: no JVD or carotid bruit Chest: normal inspection of chest Abdomen: normal bowel sounds, soft, nontender, no hepatosplenomegaly Musculoskeletal: no cyanosis or clubbing, extremities motor strength 5/5 Skin: no rashes, warm and dry normal turgor Neurologic: PERRL, EOMI, accommodation nl, no face palsy, no dysarthria CN's II- XI intact bilaterally and moves all extremities Psychiatric: A+Ox3, euthymic affect Lymphatic: no cervical or axillary lymphadenopathy : deferred Discharge Data Allergies Allergy/AdvReac Type Severity Reaction Status Date / Time nkda Allergy Uncoded 06/25/22 18:42 Consultations 06/25/22 18:34 ED Decision to Admit Stat Ordered Studies 06/25/22 15:16 CT abd pelvis IV con only Stat Hospital Course (1) Acute epigastric pain: (2) Nausea & vomiting: (3) Hypertensive urgency: (4) Side effect of drug: (5) Type 2 diabetes mellitus: (6) Dyslipidemia: Plan Patient is a 46-year-old female with past medical history of type 2 diabetes mellitus who presented to the ED with epigastric pain, nausea and vomiting for 1 day. She was started on Mounjaro 4 weeks back; her dose was increased from 5 mg to 7.5 mg 2 days prior to the presentation. On presentation to the ED, she was hypertensive with blood pressure of 214/111. CT abdomen and pelvis was done which did not show any acute abnormality. She was admitted to telemetry floor; was treated with IV fluids, bowel rest and antiemetics. Over the course of hospitalization, patient's nausea and vomiting improved; she was able to tolerate normal diet. Patient had low urinary output within the first 24 hours of the hospitalization; her renal function was monitored and she was given more IV fluids. Her urine output improved; her creatinine/BUN was normal on the day of discharge. Patient was asked to stop Mounjaro discharge and was asked discuss with her primary care doctor for long-term management of type 2 diabetes mellitus. Total Time Total Time Spent Total Time Spent (In Minutes): 35 Total Time Includes: Examination of the Patient, Discharge Planning, Medication Reconciliation, Communication With Other Providers and Other Discharge Plan Discharge Items Patient Disposition: Hospice - Home Reason For Visit: hypertensive urgency, n/v Discharge Diagnosis: (1) Acute epigastric pain: (2) Nausea & vomiting: (3) Hypertensive urgency: Condition on Discharge: Fair Activity: Resume your previous activity Non-emergency contact: Primary Care Provider Call non-emergency contact if: you have any medication questions and your symptoms worsen Follow-up/Referrals: Zechariah Mckeon MD [Primary Care Provider] - (Date & Time 06/30/2022 11:00 AM Provider Zechariah Mckeon MD Department Family Practice [facility] ) Diet: Regular and Carb Consistent or DM2 Addtl Attending Provider Instructions: You were admitted to the hospital with nausea and vomiting. The most likely cause for it is Mounjaro( Terzepatide). We recommend you stop the medication and discuss with your PCP regarding alternatives. Your kidney function is within normal limits. Please continue to keep yourself hydrated. Pending Studies at Discharge: No Stand-Alone Forms: [facility]School [facility] Medications and DC Order Prescriptions: Continued atorvastatin 10 mg tablet 10 mg PO DAILY losartan 25 mg tablet 25 mg PO DAILY montelukast 10 mg tablet 10 mg PO DAILY cetirizine [Zyrtec] 10 mg Tablet 10 mg PO DAILY pantoprazole 40 mg tablet,delayed release (DR/EC) 40 mg PO QAM insulin degludec [Tresiba FlexTouch U-100] 100 unit/mL (3 mL) insulin pen 35 unit SUBCUT DAILY venlafaxine 150 mg capsule,extended release 24hr 300 mg PO QAM valacyclovir 500 mg tablet 500 mg PO QAM PRN (Reason: Cold Sores) ergocalciferol (vitamin D2) 1,250 mcg (50,000 unit) capsule 50,000 unit PO WK Rx Instructions: TAKE THIS MED EVERY WEDNESDAY diphenoxylate-atropine [Lomotil] 2.5-0.025 mg Tablet 1 tab PO DAILY Discontinued Mounjaro 10 mg/0.5 mL pen injector 7.5 mg SUBCUT WK Rx Instructions: TAKE THIS MED EVERY WEDNESDAY Discharge Orders: Discharge Order (Routine); Ordered 06/27/22 Ordered By: Gamaliel Serrano/Other Patient Handouts: Managing Type 2 Diabetes Admission Data Admit Date/Time: 06/25/22 18:39 Attending Provider: Gamaliel Krause Admit Provider: Anna Alvarado Primary Care Provider: Zechariah Mckeon Other Providers: Anna Alvarado Other Interventions: Discharge Summary Assessment (RN) Last Done: 06/27/22 09:08
== END 2022-06-27 11:08 | disposition home or self-care (01) | DRG 392 ==
LOC: ED 13:49 → SUATTDRO 18:39 → 4W 18:39